=== PATIENT | male | born 1970 | race Hispanic/Latino ===

== ENCOUNTER 2016-09-12 11:15 | Emergency (ER) | payer SELFPAY ==
[~2016-09-12] VITALS: Ht 175.3 cm; Wt 90.7 kg
[2016-09-12 11:20] VITALS: BP 145/94
--- NOTE | 2016-09-12 11:49 | ED SKIN/ALLERGY COMPLAINT ---
History of Present Illness General Chief Complaint: Skin Rash/ Abcess Stated Complaint: RASH Source: patient Exam Limitations: no limitations Vital Signs & Intake/Output Vital Signs & Intake/Output Vital Signs Date Time Temp Pulse Resp B/P B/P Pulse O2 O2 Flow FiO2 Mean Ox Delivery Rate 09/12 1220 98 Room Air 09/12 1120 97.6 69 20 145/94 98 Room Air Allergies Coded Allergies: No Known Allergies (09/12/16) Reconcile Medications Meloxicam (Mobic) 15 MG TABLET 1 TAB PO DAILY PRN PAIN Valacyclovir HCl (Valtrex) 1,000 MG TABLET 1 TAB PO TID SHINGLES Triage Note: PT BIBA IN PD CUSTODY. RIGHT UPPER LEG. PT STATES IT HAS BEEN TEHRE 2-3 MONTHS. PT WENT TO [facility] AND WAS RX'D A CREAM. PT HAS BEEN USING CREAM PRESCRIBED BUT STATES THE RASH IS GETTING WORSE. PT ALSO C/O B/L LE EDEMA. Triage Nurses Notes Reviewed? yes Onset: Gradual Duration: getting worse Timing: recent history Severity: severe Severity Numbers: 7 HPI: Patient is a 46-year-old male with an unremarkable past medical history of present emergency room from [facility] for concerns of a 2-3 month history of gradual onset of worsening right-sided leg itching and painful and spreading rash TO HIS RIGHT UPPER THIGH ONLY. Patient was evaluated APPROXIMATELY 1 month ago for similar complaints at a local hospital in which he was prescribed steroid cream with no relief. Patient denies any fever, chills, discharge. (LUO PRITCHARD) Past History Travel History Traveled to [place] past 21 day No Medical History Any Pertinent Medical History? none Surgical History Surgical History: non-contributory Psychosocial History What is your primary language Moz[place]ican Tobacco Use: Current Not Daily ETOH Use: occasional use Illicit Drug Use: denies illicit drug use Family History Hx Contributory? No (LOU PRITCHARD) Review of Systems Review of Systems Constitutional: Reports: no symptoms. EENTM: Reports: no symptoms. Respiratory: Reports: no symptoms. Cardiovascular: Reports: no symptoms. GI: Reports: no symptoms. Genitourinary: Reports: no symptoms. Musculoskeletal: Reports: no symptoms. Skin: Reports: see HPI, rash. Neurological/Psychological: Reports: no symptoms. Hematologic/Endocrine: Reports: no symptoms. Immunologic/Allergic: Reports: no symptoms. All Other Systems: Reviewed and Negative (LOU PRITCHARD) Physical Exam Physical Exam General Appearance: no apparent distress, alert, comfortable Head: atraumatic Eyes: Bilateral: normal appearance. Ears, Nose, Throat: hearing grossly normal Neck: normal inspection Gastrointestinal: normal bowel sounds, soft Neurologic/Psych: no motor/sensory deficits Skin Problem Location: lower extremities Lymphatic: no anterior cervical sunita Diagram Body: 1) Noted linear dermatomal pattern of clustered vesicular erythematous lichenified rash (LOU PRITCHARD) Progress Differential Diagnosis: abscess/cellulitis, allergic reaction, anaphylaxis, contact dermatitis, drug reaction, shingles Plan of Care: Due to history of present illness and exam findings patient has concerns of right upper extremity shingles. Discussed patient with Dr. Evans who also evaluated patient and agrees with disposition and plan (LOU PRITCHARD) Departure Departure Disposition: HOME OR SELF CARE Condition: Stable Clinical Impression Primary Impression: Thigh shingles Referrals: PATIENT HAS NO PRIMARY CARE DR (PCP/Family) Additional Instructions: As discussed begin the prescription of Valtrex as directed for your symptoms, begin the prescription molded for pain. If symptoms worsen or if YOU develop a new concerning symptom return to emergency room immediately. Follow-up with YOUR primary care doctor on Friday if no better Departure Forms: Customer Survey General Discharge Information Prescriptions: Current Visit Scripts Valacyclovir HCl (Valtrex) 1 TAB PO TID #21 TAB Meloxicam (Mobic) 1 TAB PO DAILY PRN PAIN #20 TAB (LOU PRITCHARD) PA/ROSE GROWER Co-Sign Statement Statement: ED Attending supervision documentation- [X] I saw and evaluated the patient. I have also reviewed all the pertinent lab results and diagnostic results. I agree with the findings and the plan of care as documented in the PA's/ROSE GROWER's documentation. [X] I have reviewed the ED Record and agree with the PA's/ROSE GROWER's documentation. [] Additions or exceptions (if any) to the PAs/ROSE GROWER's note and plan are summarized below: [] (MAICO TOLBERT,KIMI Parekh)
[2016-09-12] MEDS ORDERED: VALTREX1000 MG PO ×2 (12:23→12:42)
[2016-09-12] MEDS ORDERED: MOBIC15 M1 PO ×2 (12:23→12:42)
== END 2016-09-12 13:03 ==
LOC: ERH 11:15
DX: B02.9 Zoster without complications (principal)